=== PATIENT | female | born 1955 | race Caucasian/White ===

== ENCOUNTER → 2024-02-19 18:28 | Outpatient (REF) | payer MEDICARE, SELFPAY | LOC: CLAB 18:28 | PROVIDERS: ATTENDING PHYSICIAN Podiatrist Foot Surgery | DX: M85.671 Other cyst of bone, right ankle and foot (principal) | CPT/HCPCS: 88304 ==

== ENCOUNTER → 2024-03-02 16:13 | Outpatient (REF) | payer MEDICARE, OTHER, SELFPAY | LOC: RAD 16:13 | PROVIDERS: ATTENDING PHYSICIAN Nurse Practitioner Family | DX: K59.00 Constipation, unspecified (principal) | CPT/HCPCS: 74019 ==

== ENCOUNTER → 2024-03-29 09:39 | Outpatient (REF) | payer MEDICARE, OTHER, SELFPAY | LOC: HWRAD 09:39 | PROVIDERS: ATTENDING PHYSICIAN Nurse Practitioner Family | DX: R14.0 Abdominal distension (gaseous) (principal) | CPT/HCPCS: 76700 ==

== ENCOUNTER → 2024-08-08 10:02 | Outpatient (REF) | payer MEDICARE, SELFPAY | LOC: HWRAD 10:02 | PROVIDERS: ATTENDING PHYSICIAN Nurse Practitioner; FAMILY PHYSICIAN Nurse Practitioner Family | DX: Z12.11 Encounter for screening for malignant neoplasm of colon (principal) | CPT/HCPCS: 74261 ==

== ENCOUNTER 2024-09-20 06:19 | Day surgery (SDC) | payer MEDICARE, OTHER, SELFPAY | END 2024-09-20 10:24 | disposition home or self-care (01) | LOC: GI 06:19 | PROVIDERS: ATTENDING PHYSICIAN Internal Medicine Gastroenterology | DX: R12 Heartburn (principal); K22.70 Barrett's esophagus without dysplasia; K31.89 Other diseases of stomach and duodenum; K44.9 Diaphragmatic hernia without obstruction or gangrene | CPT/HCPCS: 43239; 88305; 88342 ==

== ENCOUNTER 2024-10-01 21:28 | Emergency (ER) | payer MEDICARE, OTHER, SELFPAY ==
[2024-10-01 21:30] VITALS: BP 119/60
--- NOTE | 2024-10-01 21:51 | ED.GENMED ---
History of Present Illness
General
Chief Complaint: Fall
Time Seen by Provider: 10/01/24 21:49
History of Present Illness
History of Present Illness:
68-year-old female presents the emergency department for evaluation of a head injury and right hip pain as well as right hand wound after a minor fall, tripped while walking up the stairs. She is able to ambulate however with significant pain to
the right hip. Denies any loss of conscious. Does not take any anticoagulants or antiplatelets.
Past History
Past History
ED Past Medical History: GERD; Negative Asthma, HTN, Hypercholesterolemia or NIDDM
ED Past Surgical History: None
Social History
Tobacco: Former smoker
Alcohol: Daily (Wine)
Personal:
Living: with family
Review of Systems
Review of Systems
Allergies reviewed?: Yes
All Other Systems: ROS reviewed and negative except as documented in HPI and ROS
Phy Exam
Physical Exam
Physical Exam:
GEN: Well appearing, NAD, WDWN
Eyes: PERRLA, EOMs intact, no scleral icterus
HENT: Minor ecchymosis to the right forehead, no crepitus, oral mucosa moist, no midline cervical spine tenderness, C-spine range of motion normal
Lungs: CTAB, no wheezes, rales, rhonchi, normal chest wall excursion
Cardiac: RRR, no M/R/G, no peripheral edema. Radial pulses 2+ bilat
Abdomen: S, NT, ND, NABS, no masses or hepatosplenomegaly
Neuro: AO x 3, cranial nerves II through XII grossly intact
MSK: No gross deformity or ecchymosis. Minor superficial wounds to the right hand, no deformity, right wrist range of motion normal. No hip or pelvic deformities, right hip range of motion is normal, focal tenderness to the gluteal region, no
inguinal pain
Skin: No rashes, petechiae. Normal color, no pallor or jaundice.
Psych: Calm, cooperative, proper hygiene
Course
Orders/Labs/Results
Orders:
Orders
10/01/24 22:05
CT Head W/o Iv Contrast Urgent
Comment:
Reason For Exam: fall, head injury
CR Hip - RT w/wo Pel 2-3 Vw* Urgent
Comment:
Reason For Exam: fall
Include a pelvis x-ray?: Yes
10/01/24 23:04
Acetaminophen [Tylenol] 650 mg PO NOW STA
Ibuprofen [Motrin] 400 mg PO NOW STA
Vital Signs
Initial and Last Documented VS:
Initial Vital Signs
Temp Pulse Resp BP Pulse Ox
98.7 F 69 16 119/60 98
10/01/24 21:30 10/01/24 21:30 10/01/24 21:30 10/01/24 21:30 10/01/24 21:30
Last Documented Vital Signs
Temp Pulse Resp BP Pulse Ox
98.7 F 69 16 118/57 98
10/01/24 21:30 10/01/24 21:30 10/01/24 21:30 10/01/24 22:07 10/01/24 22:30
MDM/Problems Addressed
MDM/Problems Addressed:
Likely right gluteal contusion. She is able to bear weight with discomfort. Recommend NSAIDs and Tylenol as well as ice, PCP follow-up if symptoms persist
*Critical Care Note
Total Time (30-74mins, 75-104mins- exclusive of procedures): Not Applicable
ED Attending Note
-
Portions of this chart may have been created with voice recognition software.� Occasional wrong word or��sound alike� substitutions may have occurred due to the inherent limitations of voice recognition software.
Discharge Plan
Departure
Patient Disposition: Home (Routine Discharge)
Date of Disposition: 10/01/24
Time of Disposition: 23:25
Patient with high blood pressure during this ER visit?: No
Discharge Problem:
Contusion of buttock
Instructions: Contusion (DC)
Prescriptions:
No Action
cholecalciferol (vitamin D3) 1,000 UNITS tablet
1,000 mg PO DAILY
citalopram 20 MG tablet
20 mg PO DAILY
acetaminophen 325 mg Tablet
650 mg PO DAILYPRN PRN (Reason: mild pain)
Theragen Tablet
1 tab PO DAILY
alprazolam [Xanax] 0.25 mg Tablet
0.25 mg PO HS PRN (Reason: anxiety)
ibuprofen 200 mg Tablet
200 mg PO Q6H PRN (Reason: mild pain)
gabapentin 300 mg Capsule
300 mg PO HS
omeprazole 20 mg Capsule,Delayed Release(Dr/Ec)
20 mg PO DAILY
Visbiome 112.5 billion cell Capsule
1 cap PO DAILY
Referrals:
Harleen Wasserman CRNP [Family Provider] -
Interventions
Interventions:
*Risk Screen - Suicide Last Done: 10/01/24 21:30
*Neglect/Abuse Screening Last Done: 10/01/24 21:30
ED- Fall Risk Assessment Last Done: 10/01/24 21:56
*Nursing Disposition Last Done: 10/01/24 23:33
ED-Musculoskeletal Assessment Last Done: 10/01/24 21:56
ED- Neurological Assessment Last Done: 10/01/24 21:56
ED-Skin Assessment Last Done: 10/01/24 22:08
Discharge Date and Time
Discharge Date/Time: 10/01/24 23:37
Print Language: AZERI
[2024-10-01 21:55] VITALS: BMI 24.6
[2024-10-01 22:07] VITALS: BP 118/57
[2024-10-01] MEDS: TYLENOL 650 MG PO (23:10)
[2024-10-01] MEDS: MOTRIN 400 MG PO (23:11)
== END 2024-10-01 23:37 | disposition home or self-care (01) ==
LOC: EMR 21:28
PROVIDERS: EMERGENCY PHYSICIAN Emergency Medicine; FAMILY PHYSICIAN Nurse Practitioner Family
DX: S30.0XXA Contusion of lower back and pelvis, initial encounter (principal); S09.90XA Unspecified injury of head, initial encounter; S72.011A Unspecified intracapsular fracture of right femur, initial encounter for closed fracture; S00.83XA Contusion of other part of head, initial encounter; M25.551 Pain in right hip; W19.XXXA Unspecified fall, initial encounter; Y93.01 Activity, walking, marching and hiking; K21.9 Gastro-esophageal reflux disease without esophagitis; Z87.891 Personal history of nicotine dependence
CPT/HCPCS: 99284; 70450; 73502

== ENCOUNTER 2024-10-02 15:35 | Inpatient (IN) | payer MEDICARE, OTHER, SELFPAY ==
[2024-10-02 11:47] VITALS: BP 140/84
--- NOTE | 2024-10-02 13:38 | ED.MUSCINJ ---
HPI-Injury
General
Chief Complaint: Musculo-Skeletal Complaint
Source: patient
Exam Limitations: none
Time Seen by Provider: 10/02/24 13:09
Nursing documentation reviewed up to this point in time: agreed with
History of Present Illness-Injury
Initial Injury comments:
68 yo female with right hip pain, evaluated here last p.m. initial xray read as negRACHELE'd home, this a.m. radiology informed official read: Right femoral slightly impacted subcapital fracture. Pt notified. Consulted Dr. Simons as pt has seen their
group in the past. He requests CT scan to determine plan of care.
Pt informs me she only wants an anterior hip replacement if one is needed. Dr. Simons confirms that no one in their group does that. He is willing to evaluate her but if she wants anterior done, he suggests [facility] or
[facility] but she can go where ever she wants. Pt states she would prefer [facility] if needs hip replaced
Past History
Past History
ED Past Medical History: GERD; Negative Asthma, HTN, Hypercholesterolemia or NIDDM
ED Past Surgical History: None
Social History
Tobacco: Former smoker
Alcohol: Daily (Wine)
Personal:
Living: with family
Review of Systems
Review of Systems
Allergies reviewed?: Yes
All Other Systems: ROS reviewed and negative except as documented in HPI and ROS
Constitutional: Denies fever
Respiratory: Denies trouble breathing
Cardiac: Denies chest pain
ABD/GI: Denies abdominal pain
: Reports no symptoms
Musculoskeletal: Reports other (Right hip pain)
Skin: Reports no symptoms
Neurological: Reports no symptoms
Phy Exam
Physical Exam
Physical Exam:
GENERAL: No acute distress. A&Ox3.
CONSTITUTIONAL: Afebrile.
EYES: PERRL, conjunctivae normal
ENMT: moist mucus membranes, Pharynx nl
RESPIRATORY: Regular respirations, nonlabored, lungs clear.
CARDIOVASCULAR: Regular rate and rhythm, no murmurs, no rubs.
GI: Soft, nontender, normal BS
MUSCULOSKELETAL: Pain with moving right hip. Moves with ease. Well perfused.
SKIN: Warm, dry, pink
PSYCH: Normal mood and affect. Well kept, interactive and appropriate
NEUROLOGIC: Awake, alert and oriented. No focal neurological deficits
Injury Course
Orders/Labs/Results
Orders:
Orders
10/02/24 13:37
CT Lower Ext W/o Iv Cont Rt Urgent
Comment:
Reason For Exam: evaluate fracture
10/02/24 13:50
CR Hip - RT w/wo Pel 2-3 Vw* Urgent
Comment:
Reason For Exam: Right Hip Fracture
Include a pelvis x-ray?: Yes
10/02/24 14:04
ORTHOPEDIC CONSULT Urgent
Consulting Provider: Rehan Simons
Was physician already notified: Yes
Reason for consult: Right hip fracture
10/02/24 14:50
Weight Bearing Status As Directed
Weight bearing to: Right lower extremity
Type: Non Wt. bearing
10/02/24 15:00
Type+Screen Routine
Regular
At Your Request: Full Participation
Does patient need a safe tray?: No
10/02/24 15:09
Admit/Transfer Patient As Directed
Co-Sign Provider:
Level of Care: Inpatient admission
Assign to:: Medical/Surgical
Physician / Group: Skyler Beavers
Diagnosis: Right hip fracture
Reason for Hospitalization: Right hip fracture
Expected length of stay greater than two midnights?: Yes
ELOS- Estimated Length of Stay in days: 3
I certify the patient meets the requirements for IP care: Yes
PRN Pain Medication Management As Directed
May give lesser potent ordered pain med per pt: Yes
preference::
Protocol:: Medication orders for pain may be administered in a
manner that supports deferring to patient preference
when the pt is:
- Requesting an ordered lesser potent pain medication.
Least to most potent pain medications are defined
as: acetaminophen < NSAID < tramadol < opioids
(morphine, oxycodone, hydromorphone).
- Requesting a lesser dose of the same medication IF
ORDERED.
- Requesting a less intrusive route of administration
if both routes are prescribed by the provider (PO <
IV).
10/02/24 15:10
Code Status As Directed
Resuscitation Status: Full Code
10/02/24 16:00
Acetaminophen [Tylenol] 650 mg PO Q4HWA
10/02/24 16:16
Alprazolam [Xanax] 0.25 mg PO HS PRN
HYDROmorphone [Dilaudid] 0.25 mg IV Q1HPRN PRN
Magnesium Hydroxide [Milk of Magnesia] 30 ml PO DAILYPRN PRN
Oxycodone [Roxicodone] 5 mg PO Q4HPRN PRN
Tamsulosin [Flomax] 0.4 mg PO DAILYPRN PRN
10/02/24 16:16
Activity As Directed
Activity Level: Bedrest
Bladder Scan As Directed
Follow Bladder Retention/Intermittent Cath Algorithm?: Yes
PRN if no void in __ hours: 6
Comment: if not voiding 6 hrs upon arrival to floor, bladder scan & follow algorithm
Intake/ Output As Directed
Frequency: Per unit guidelines
Pneumatic Compression Sleeves As Directed
Type: Knee high
Straight Cath As Directed
Frequency: Per Retention Algorithm
Additional Instructions: straight cath as needed per acute urinary retention algorithm for 24 hrs
Additional Instructions: for bladder scan greater than 400 mL
Vital Signs As Directed
Frequency: Per unit guidelines
DX Deep Vein Thrombosis Video Routine
10/02/24 20:00
Docusate Sodium [Colace] 100 mg PO BID
Sennosides [Senokot] 17.2 mg PO BID
10/02/24 22:00
Gabapentin [Neurontin] 300 mg PO HS
10/03/24 Breakfast
NPO
Allow oral meds: Yes
Allow clear liquids: No
10/03/24 07:00
CeFAZolin 2 GRAM [Ancef] 2 grams in 10 ml IV PRE PROCEDURE
10/03/24 08:00
Cholecalciferol (Vitamin D3) [VITAMIN D3 (cholecalciferol)] 25 mcg PO DAILY
Citalopram [Celexa] 20 mg PO DAILY
Pantoprazole [Protonix] 40 mg PO DAILY
MDM/Problems Addressed
MDM/Problems Addressed:
68 yo female with right hip pain, evaluated here last p.m. initial xray read as neg, DC'd home, this a.m. radiology informed official read: Right femoral slightly impacted subcapital fracture. Pt notified. Consulted Dr. Simons as pt has seen their
group in the past. He requests CT scan to determine plan of care.
Pt informs me she only wants an anterior hip replacement if one is needed. Dr. Simons confirms that no one in their group does that. He is willing to evaluate her but if she wants anterior done, he suggests [facility] or
[place]. Pt states she would prefer [facility]. She would also prefer to come here for CT scan then decide what to do from there based on CT results.
2:[address] done
Pt appears comfortable
Dr. Simons consulted and read CT scan.
Orthopedic ROBBY Lovell in
2:[address] Simons in.
Hospitalist notified of admission.
*Critical Care Note
Total Time (30-74mins, 75-104mins- exclusive of procedures): Not Applicable
ED Attending Note
-
Portions of this chart may have been created with voice recognition software.� Occasional wrong word or��sound alike� substitutions may have occurred due to the inherent limitations of voice recognition software.
Discharge Plan
Departure
Patient Disposition: Admit
Date of Disposition: 10/02/24
Time of Disposition: 14:27
Admit to: Med/Surg
Presentation/result/management discussed w/ accepting MD/DO: Hospitalist
Condition: Good
Discharge Problem:
Closed right hip fracture
Interventions
Interventions:
*Risk Screen - Suicide Last Done: 10/02/24 13:56
*General Assessment Last Done: 10/02/24 13:56
*Neglect/Abuse Screening Last Done: 10/02/24 13:56
ED- Fall Risk Assessment Last Done: 10/02/24 16:07
*ED COVID-19 Vaccine History Last Done: 10/02/24 13:56
*Nursing Disposition Last Done: 10/02/24 16:07
ED-Musculoskeletal Assessment Last Done: 10/02/24 13:59
Discharge Date and Time
Discharge Date/Time: 10/02/24 16:07
[2024-10-02 14:26] VITALS: BP 158/103
--- NOTE | 2024-10-02 14:49 | CON.ORTHO ---
Consultation
-
Date/Time Consultation Requested: 10/02/2024 @ 14:04
Date/Time Consultation Performed: 10/02/2024 @ 14:30
Requesting Provider: Shaila Chairez NP
Performing Provider: Nas Camarillo PA-C for Dr. Simons
Reason for Consultation: Right Hip Fracture
Consultation - Orthopedics
History
HPI: The patient is a 68-year-old female with a past medical history significant for GERD, MRSA infection LLE 2017 (cleared of active colonization with nasal swabs per patient), Depression, Left total hip replacement with Dr. Nobles 2018 for
displaced femoral neck fracture, and Left total knee replacement with Dr. Nobles 2019, who presented to [facility] Emergency Department on Thursday10/01/2024 after sustaining a mechanical fall. She reports that she was walking up a step
when she fell onto her right side. She reports immediate onset of right hip pain. Patient was transferred to ED via her , where x-rays were performed and were initially read as negative. She was diagnosed with a contusion of buttock and was
discharged home. She was contacted this morning after radiologist reviewed her x-rays, which revealed a right femoral slightly impacted subcapital fracture. She was informed to return to the Emergency Department for treatment. She reports pain with
weightbearing activities. She denies any anticoagulation use. She is currently laying in ED Bed 34 with , Marlo, at bedside. She reports that her pain is well controlled with OTC Tylenol and Ibuprofen. Orthopedic surgery has been consulted
regarding further management of her right hip fracture.
PAST MEDICAL HISTORY: GERD, MRSA infection LLE 2018 (cleared of active colonization with nasal swabs per patient), Depression.
PAST SURGICAL HISTORY: Left total hip replacement with Dr. Giuliano Aggarwal for displaced femoral neck fracture, Left total knee replacement with Dr. Nobles 2019.
SOCIAL HISTORY: Former Smoker. Reports EtOH use (wine). ( �Marlo). Lives at home. 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 Fully ambulatory without assistance at baseline.
FAMILY HISTORY: Non-contributory.
REVIEW OF SYSTEMS: 12-point review of systems obtained and negative except those mentioned in the HPI.
Allergies / Home Medications
Allergy/AdvReac Type Severity Reaction Status Date / Time
No Known Allergies Allergy Verified 10/01/24 21:30
�Medication �Instructions �Recorded
L.acidoph, paracasei,B. lactis 10 1 ea PO DAILY ##0 06/22/16
billion cell capsule
cholecalciferol (vitamin D3) 25 1,000 mg PO DAILY 06/22/16
mcg (1,000 unit) tablet
multivitamin with folic acid 400 1 tab PO DAILY ##0 06/22/16
mcg tablet (Tab-A-Bj)
turmeric root extract 500 mg 500 mg PO DAILY ##0 06/22/16
capsule
vitamin B complex 1 tab PO DAILY ##0 06/22/16
ascorbic acid (vitamin C) 500 mg 1,000 mg PO DAILY 08/29/19
tablet (Vitamin C)
calcium 200 mg (carbonate, 1 ea PO MEALS 08/29/19
citrate)-magnesium 50 mg (as
oxide) tablet (CalMag Thins)
citalopram 20 mg tablet 20 mg PO HS 08/29/19
omega 8-kfy-niz-fish oil 1,000 mg 1,000 mg PO DAILY 08/29/19
(120 mg-180 mg) capsule
omeprazole 40 mg capsule,delayed 40 mg PO DAILY 08/29/19
release
aspirin 325 mg tablet 325 mg PO DAILY 08/31/19
docusate sodium 100 mg capsule 100 mg PO BID #0 caps 08/31/19
magnesium hydroxide 400 mg/5 mL 30 ml PO DAILYPRN PRN constipation 08/31/19
oral suspension
Vital Signs / Lab Results
Temp Pulse Resp BP Pulse Ox
99.1 F 77 18 158/103 99
10/02/24 11:47 10/02/24 14:26 10/02/24 14:26 10/02/24 14:26 10/02/24 14:26
RADIOGRAPHIC FINDINGS:
CR Hip - RT w/wo Pel 2-3 Vw* was obtained at [facility] on 10/01/2024 and was made available for my review today. Findings: Subtle linear increased sclerosis is demonstrated at the base of the femoral head, with subtle offset at the
lateral cortical margin. Subtle linear lucency is seen on the oblique projection. Findings consistent with a slightly impacted subcapital fracture. No significant displacement. Femoral head remains situated within the acetabulum. No osseous
pelvic fracture identified. There is a left hip prosthesis. Lower lumbar discogenic and facet degenerative changes. Impression: Right femoral slightly impacted subcapital fracture.
CT Lower Ext W/o Iv Cont RT was performed at [facility] on 10/02/2024 and was made available for my review today. Findings: There is a subtle minimally impacted nondisplaced fracture of the neck of the proximal right femur best appreciated
on coronal reformatted image 58 and 59 series 203. Some mild hypertrophic degenerative changes are noted about the right hip and about the symphysis pubis. Left hip arthroplasty seen in anatomic position with some accompanying beam hardening
artifact. No additional recent cortical fracture is seen about the bony pelvis. Some hypertrophic degenerative changes are seen within the lower lumbar spine. There is a likely small fat only containing umbilical hernia although evaluation is
limited by marked patient motion/respiratory artifact. Respiration/motion artifact also obscures additional soft tissues of the true pelvis. The urinary bladder is grossly intact. There is no true pelvis free fluid. The abdominal aorta is normal
in caliber with calcific arthrosclerotic changes. Impression: Subtle minimally impacted nondisplaced fracture, neck, proximal right femur.
CR Hip - RT w/wo Pel 2-3 Vw* was obtained at [facility] on 10/02/2024 and was made available for my review today. Findings and impression: Minimally impacted nondisplaced fracture of the neck of the proximal right femur is unchanged. Left
hip arthroplasty is again seen.
PHYSICAL EXAM:
General: Well-developed, well-nourished, and in no apparent distress.
HEENT: NCAT, sclerae anicteric, normal conversational hearing.
Heart: No JVD.
Lungs: Normal work of breathing on room air.
MSK: Focused examination of the right lower extremity reveals no obvious deformity. (+) Logroll. (+) Tenderness to palpation of the right hip. ROM deferred secondary to known fracture. Able to plantarflex and dorsiflex right ankle. Wiggle all
toes. NVI distally.
Assessment / Plan
ASSESSMENT: 68-year-old female with a RIGHT minimally impacted nondisplaced femoral neck fracture.
PLAN: Unfortunately, the patient has sustained a right hip fracture following a mechanical fall yesterday. We discussed the treatment options. Recommend operative fixation. The risks, benefits, potential complications, and expected postoperative
course were reviewed. Surgical and blood consents were obtained and scanned into the patient's chart. Ancef on-call to OR. We will plan for OR tomorrow, 10/03/2024, under the direction of Dr. Simons for a RIGHT hip pinning as long as medically
cleared to proceed. Patient will remain NPO pMN 10/02/2024. Remain NWB to RLE. Continue with pain medications as needed per primary team. Type and screen ordered. Right hip marked as the correct surgical extremity. Case posted with the OR
front end assistant. Orthopedic surgery will continue to follow.
Patient seen and evaluated in tandem with Dr. Simons
--- NOTE | 2024-10-02 15:11 | HPS.HSE ---
Family Physician
-
Family Physician: ARACELI Arnold
Chief Complaint
-
Right hip pain
History of Present Illness
Patient is a 68-year-old female with past medical history of osteopenia, left hip replacement, GERD, depression came to ER with new onset of right hip pain. Patient was walking upstairs when patient had a slip and fall and landed on the right side,
patient was having significant pain. In ER patient had a hip x-ray which did not show any overt fracture. Patient was discharged home although later radiology contacted ER physician for reported judgment of patient having occult fracture. Patient
was reevaluated in ER with a CT hip confirming right hip impacted fracture. Patient evaluated by orthopedic surgery in the ER and plan to be admitted for elective surgery tomorrow.
Patient during my visit resting comfortably bed in ER. Denies any prefall symptoms of chest discomfort/shortness of breath/dizziness/palpitation. No other GI/ complaint
Medical History
Past Medical History
Past Medical History: Reports Other
Additional Past Medical History:
osteopenia, left hip replacement, GERD, depression
Past Surgical History: Reports Other
Social History
Tobacco: Former Smoker
Alcohol: Occasional
Drug: None
Personal:
Living: With Family
Family History
Family History: Not pertinent
Allergies / Home Medications
Allergies reflects when Allergies were last updated in [facility].
Home Medications with original date entered in [facility]
Allergy/Medication List:
Allergies
Allergy/AdvReac Type Severity Reaction Status Date / Time
No Known Allergies Allergy Verified 10/01/24 21:30
Home Medications
cholecalciferol (vitamin D3) 25 mcg (1,000 unit) tablet 1,000 mg PO DAILY 06/22/16
citalopram 20 mg tablet 20 mg PO DAILY 08/29/19
Lactobac no.2-Bifidobac no.1-S. thermo 112.5 billion cell capsule (Visbiome) 1 cap PO DAILY 10/02/24
acetaminophen 325 mg tablet 650 mg PO DAILYPRN PRN mild pain 10/02/24
alprazolam 0.25 mg tablet (Xanax) 0.25 mg PO HS PRN anxiety 10/02/24
gabapentin 300 mg capsule 300 mg PO HS 10/02/24
ibuprofen 200 mg tablet 200 mg PO Q6H PRN mild pain 10/02/24
omeprazole 20 mg capsule,delayed release 20 mg PO DAILY 10/02/24
therapeutic multivitamin 1 tab PO DAILY 10/02/24
Review of Systems
-
A 12 point ROS was completed and negative except as noted: Yes
Physical Exam
Vital Signs
Vital Signs
Temp Pulse Resp BP Pulse Ox
99.1 F 77 18 158/103 99
10/02/24 11:47 10/02/24 14:26 10/02/24 14:26 10/02/24 14:26 10/02/24 14:26
Physical Exam
General: Well Developed, Well Nourished and No Apparent Distress
HEENT: NormoCephalic, Moist mucous membranes and Atraumatic
Respiratory: Clear
Cardiac: S1/S2 and Regular Rhythm; No Murmur or Rub
GI: Soft, Non Tender, Non Distended and Normal Bowel Sounds; No Organomegaly
Rectal: Deferred by Provider
Musculoskeletal: No Clubbing, No Cyanosis and No Edema
Skin: No Rash
Neuro: Nonfocal/grossly intact
Impression/Plan
-
CT right hip
Subtle minimally impacted nondisplaced fracture, neck, proximal right femur.
1. Right femur neck impacted fracture
Mechanical fall
-Confirmed on CT hip
-Not having significant pain, started on oxy/IV Dilaudid regimen
-Orthopedic surgery evaluated and ER, likely surgery tomorrow
-Maintain patient n.p.o. past midnight
2. osteopenia
-Patient gets periodic DEXA scan. Managed by family physician
3. Depression/anxiety
-Maintained on Xanax/citalopram
left hip replacement
GERD
Full code
SCD
Patient RCRI score of 0 and surgical risk acceptable. Benefit outweighs the risk and patient appropriate for surgery.
Total time spent : 75 mins
I personally saw and examined the patient.
I have reviewed all diagnostic interpretations and treatment plans as written.
Time includes patient management by me, time spent at the patients bedside, time to review lab and imaging results, discussing patient care, documentation in the medical record, and time spent with the family or caregiver and discussing care plan
with RN/Consultants.
[2024-10-02 16:30] VITALS: BP 156/92
[2024-10-02 16:52] VITALS: BMI 23.8
[2024-10-02] MEDS: TYLENOL 650 MG PO ×2 (16:53→20:33)
--- NOTE | 2024-10-02 18:02 | PTCARENOTE ---
pt admitted to 2S Room 2107 from the ED at 1615. pt received in bed. pt and oriented to room, bed controls, call lara and plan of care with verbalized understanding. admission database and nursing assessment completed as documented.
medicated w/scheduled tylenol. assisted to order dinner. care ongoing.
[2024-10-02] MEDS: COLACE 100 MG PO (20:33)
[2024-10-02] MEDS: SENOKOT 17.2 MG PO (20:33)
[2024-10-02] MEDS: NEURONTIN 300 MG PO (20:33)
[2024-10-02 20:51] LABS: Blood Urea Nitrogen 11 mg/dl (7-17); Calcium 9.1 mg/dl (8.4-10.2); Carbon Dioxide 26 mmol/L (22-30); Chloride 103 mmol/L (98-107); Estimated Creatinine Clearance 95 ml/min; Glucose 148 mg/dl (70-99); Potassium 3.5 mmol/L (3.5-5.1); Sodium 139 mmol/L (135-145); eGFR > 60.00
[2024-10-02 21:04] LABS: % Basophils 0.5 % (0-2); % Eosinophils 1.8 % (0-6); % Immature Granulocytes 0.3 % (0-0.5); % Lymphocytes 15.5 % (20.5-51.1); % Monocytes 11.3 % (1.7-9.3); % Neutrophils 70.6 % (42.2-75.2); Absolute Eosinophils 0.1 10^3/uL (0-0.7); Absolute Lymphocytes 1.2 10^3/uL (1.2-3.4); Absolute Monocytes 0.9 10^3/uL (0.1-0.6); Absolute Neutrophils 5.5 10^3/uL (1.4-6.5); Hematocrit 39.7 % (37.0-47.0); Mean Corp Hgb Conc. 35.3 g/dL (33.0-37.0); Mean Corpuscular Hgb 34.5 pg (27.0-31.0); Mean Corpuscular Volume 97.8 fL (81.0-99.0); Mean Platelet Volume 9.7 fL (7.4-10.4); Nucleated Red Blood Cells % 0 %; Platelet Count 239 10^3/uL (130-400); Red Blood Cell Count 4.06 10^6/uL (4.20-5.40); Red Cell Dist. Width 11.9 % (11.5-14.5); White Blood Cell Count 7.8 10^3/uL (4.8-10.8)
[2024-10-02] MEDS: MELATONIN 10 MG PO (21:12)
[2024-10-02 22:56] VITALS: BP 156/88
[2024-10-02] MEDS: TYLENOL PO (23:56)
[2024-10-03] VITALS (10 sets, daily range): BP systolic 146–168; BP diastolic 75–93
[2024-10-03] MEDS: TYLENOL 650 MG PO ×4 (04:26→19:57)
--- NOTE | 2024-10-03 05:54 | PTCARENOTE ---
pt washed and first set of CHG wipes completed for the OR
[2024-10-03] MEDS: PROTONIX 40 MG PO (08:15)
[2024-10-03] MEDS: CELEXA 20 MG PO (08:15)
[2024-10-03] MEDS: COLACE PO ×2 (08:16→19:54)
[2024-10-03] MEDS: VITAMIN D3 (cholecalciferol) 25 MCG PO (08:16)
[2024-10-03] MEDS: SENOKOT PO ×2 (08:16→19:54)
--- NOTE | 2024-10-03 09:06 | W.PN.UPDATE ---
Update Note
Progress Note Update
Patient seated comfortably on the bedside. Endorses minimal pain to the right hip. Plan for cannulated screw fixation of the right hip a bit later today under the direction of Dr. Simons. Surgical and blood consents were previously obtained and
scanned into [facility]. New consents were obtained this morning and placed to the chart. She is to remain NPO. 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
--- NOTE | 2024-10-03 12:16 | CM ---
Adm dx- right hip fx
Met with pt at bedside
Pt reports she lives in a 2 story home with her ; 2 steps to enter, 13 steps to 2nd fl
Independent, retired, drives
DME - rolling walker, commode
SNF - [facility] in past
HH - has had in past, unsure of agency
Has ride home at discharge
PCP - Harleen Wasserman
Pharm - [facility]
Plan is for OR tomorrow for repair of hip fx
PT/OT evals to follow
Plan - TBD post op based on PT/OT evals
--- NOTE | 2024-10-03 16:25 | W.PN.HOSP.TC ---
Today's Communication/Plan
-
OR
Assessment / Plan
Assessment / Plan
Impression:
1.Right femur neck impacted fracture secondary to mechanical trauma and osteoporosis
CT of the right hip with supple minimally impacted nondisplaced fracture, neck, proximal right femur.
Pending orthopedic intervention.
2. osteopenia
-Patient gets periodic DEXA scan. Managed by family physician
3. Depression/anxiety
-Maintained on Xanax/citalopram
left hip replacement
GERD
Full code
SCD
Patient RCRI score of 0 and surgical risk acceptable. Benefit outweighs the risk and patient appropriate for surgery.
Anticipated Discharge: 24 - 48 hours
Subjective/Interval History
-
Date of Service: October 03, 2024
Objective Data
-
Vital Signs:
Vital Signs
Temp Pulse Resp BP Pulse Ox
98 F 69 8 168/75 96
10/03/24 15:23 10/03/24 16:01 10/03/24 16:01 10/03/24 16:00 10/03/24 16:01
I&O
10/02/24 10/03/24 10/04/24
06:59 06:59 06:59
Intake Total 640 / 640
Output Total 800 / 800
Balance -160 / -160
Physical Exam
-
General: Well Developed and No Apparent Distress
HEENT: Normocephalic, Atraumatic and Moist Mucous Membranes
Respiratory: Clear to Auscultation
Cardiac: Regular Rhythm and S1/S2; Negative Murmur, Rub or Gallop
GI: Soft, Nontender, Nondistended and Normal Bowel Sounds; Negative Organomegaly
Rectal: Deferred by Provider
Musculoskeletal: No Clubbing, No Cyanosis and No Edema
Skin: Negative Rash
Neuro: Nonfocal/Grossly Intact
[2024-10-03] MEDS: TYLENOL PO (16:40)
--- NOTE | 2024-10-03 16:42 | PTCARENOTE ---
pt received from PACU at 1630 via bed. pt awake and alert. Right hip surgical dressing clean and dry. toes warm, +capillary refill, decreased sensation. able to wiggle toes. at bedside.
[2024-10-03] MEDS: NSS 1000 IV (16:50)
[2024-10-03] MEDS: ASPIRIN 325 MG PO (18:28)
--- NOTE | 2024-10-03 19:00 | PTCARENOTE ---
pt is RLE NWB. pt is using w/ RW to get to bsc. had a large loose bm. has +pp, sensation normal. no c/o pain. pt resting in bed w/ call lara in reach.
[2024-10-03] MEDS: NEURONTIN 300 MG PO (21:40)
[2024-10-03] MEDS: ANCEF 5 IV (21:40)
[2024-10-03] MEDS: MELATONIN 10 MG PO (21:40)
[2024-10-04] MEDS: TYLENOL PO (00:56)
[2024-10-04] MEDS: NSS IV (02:06)
[2024-10-04 04:09] VITALS: BP 158/100
[2024-10-04] MEDS: TYLENOL 650 MG PO ×3 (04:20→12:02)
[2024-10-04] MEDS: ANCEF 5 IV (05:03)
[2024-10-04 06:41] LABS: Hematocrit 38.7 % (37.0-47.0); Hemoglobin 13.8 g/dL (12.0-16.0)
[2024-10-04 07:24] LABS: Blood Urea Nitrogen 9 mg/dl (7-17); Calcium 8.9 mg/dl (8.4-10.2); Carbon Dioxide 27 mmol/L (22-30); Chloride 103 mmol/L (98-107); Estimated Creatinine Clearance 82 ml/min; Glucose 105 mg/dl (70-99); Potassium 4.1 mmol/L (3.5-5.1); Sodium 141 mmol/L (135-145); eGFR > 60.00
--- NOTE | 2024-10-04 07:24 | W.PN.ORTHO ---
Today's Communication / Plan
-
68-year-old female POD #1 Right Hip Pinning performed on 10/03/2024 under the direction of Dr. Simons.
- NWB RLE.
- PT/OT.
- ASA 325 mg once daily x 4 weeks for DVT prophylaxis.
- Hemoglobin this AM 13.8.
- Dressing to remain intact for 7 to 10 days. Skin clips removed at 2 weeks.
- CM regarding D/C planning.
- Orthopedic surgery will continue to follow.
Assessment
.
Distal Motor Intact: Yes
Dressing:
Aquacel dressing clean, dry and intact.
Calf is soft and nontender to palpation. Able to plantarflex and dorsiflex right ankle.
NVI distally.
Assessment:
POD #[address]. Simons 10/03/2024.
Plan
.
Surgery / Date: 10/03/[address] Simons
DVT Prophylaxis: Aspirin
Activity:
Out of bed.
PT/OT
NWB RLE.
Discharge Information:
Appreciate CM.
Subjective
.
.:
Patient resting comfortably in bed. Denies any right hip pain. Denies any new complaints or concerns at this time.
Vital Signs and Labs
.
Vital Signs and Labs:
Lab Results
10/04/24 05:01
Temp Pulse Resp BP Pulse Ox
98.0 F 71 16 158/100 97
10/04/24 04:09 10/04/24 04:09 10/04/24 04:09 10/04/24 04:09 10/04/24 04:09
[2024-10-04 08:06] VITALS: BP 153/97
[2024-10-04] MEDS: PROTONIX 40 MG PO (09:11)
[2024-10-04] MEDS: SENOKOT PO ×2 (09:11→09:15)
[2024-10-04] MEDS: VITAMIN D3 (cholecalciferol) 25 MCG PO (09:11)
[2024-10-04] MEDS: CELEXA 20 MG PO (09:11)
[2024-10-04] MEDS: ASPIRIN 325 MG PO (09:12)
[2024-10-04] MEDS: COLACE PO ×2 (09:12→09:15)
[2024-10-04 11:00] VITALS: BP 125/79
[2024-10-04 12:17] VITALS: BP 150/87; PULSE 88
--- NOTE | 2024-10-04 12:24 | CM ---
Met with pt and at bedside
PT recs HH - pt requesting [facility] needs
Discussed IMM
Pt reports she will have ride home when medically stable
Plan - anticipate home with [facility] when medically ready
--- NOTE | 2024-10-04 12:57 | VNURNOTE ---
Home Health Liaison met with patient and spouse at bedside to discuss [facility] nurse/therapy, visits, schedule and homebound status. Patient is agreeable and understands that visits at home will be 2-3 x per week to assess and teach medical management.
[facility] brochure provided with contact information. Patient is aware that [facility] will contact them for start of care in 1-2 days after discharge from .
[facility] referral completed in [facility].
--- NOTE | 2024-10-04 13:55 | W.DS.TRANS ---
DC Summary - [employer]
-
Discharge Instructions:
Discharge Diagnosis/Procedures Right femoral neck fracture secondary to fall
and osteoporosis
Diet Regular
Instructions:
Stand-Alone Forms:
Changes to Home Medications: Yes
Discharge Medications:
DC Medications w/original date entered in [employer]
cholecalciferol (vitamin D3) 25 mcg (1,000 unit) tablet 1,000 mg PO DAILY 06/22/16
citalopram 20 mg tablet 20 mg PO DAILY 08/29/19
Lactobac no.2-Bifidobac no.1-S. thermo 112.5 billion cell capsule (Visbiome) 1 cap PO DAILY 10/02/24
acetaminophen 325 mg tablet 650 mg PO DAILYPRN PRN mild pain 10/02/24
alprazolam 0.25 mg tablet (Xanax) 0.25 mg PO HS PRN anxiety 10/02/24
gabapentin 300 mg capsule 300 mg PO HS 10/02/24
ibuprofen 200 mg tablet 200 mg PO Q6H PRN mild pain 10/02/24
melatonin 10 mg tablet,extended release 10 mg HS 10/02/24
omeprazole 20 mg capsule,delayed release 20 mg PO DAILY 10/02/24
therapeutic multivitamin 1 tab PO DAILY 10/02/24
acetaminophen 325 mg tablet 650 mg (2 x 325 mg) PO Q4HWA #30 tabs 10/04/24
aspirin 325 mg tablet 325 mg PO DAILY #30 tabs 10/04/24
Home Medication Changes
Aspirin for DVT prophylaxis
Pending Results: No
[2024-10-04 15:00] VITALS: BP 153/97
== END 2024-10-04 15:17 | disposition home health service (06) | DRG 482 ==
LOC: 2 SOUTH 15:35
PROVIDERS: Physician Assistant Surgical; Student in an Organized Health Care Education/Training Program; ADMITTING PHYSICIAN Hospitalist; ATTENDING PHYSICIAN Internal Medicine; CONSULT PHYSICIAN Specialist; EMERGENCY PHYSICIAN Student in an Organized Health Care Education/Training Program; FAMILY PHYSICIAN Nurse Practitioner Family
PROC: 0SS904Z Reposition Right Hip Joint with Internal Fixation Device, Open Approach (ICD-10-PCS; 2024-10-03)
DX: M80.051A Age-related osteoporosis with current pathological fracture, right femur, initial encounter for fracture (principal); Z96.642 Presence of left artificial hip joint; K21.9 Gastro-esophageal reflux disease without esophagitis; Z87.891 Personal history of nicotine dependence; Z96.652 Presence of left artificial knee joint; Y93.01 Activity, walking, marching and hiking; W01.0XXA Fall on same level from slipping, tripping and stumbling without subsequent striking against object, initial encounter; F32.A Depression, unspecified; Z79.82 Long term (current) use of aspirin; F41.9 Anxiety disorder, unspecified
CPT/HCPCS: 70450; 73502; 73700; 76000; 80048; 85014; 85018; 85025; 86850; 86900; 86901; 97116; 97162; 97166; 99284; 99285; C1713; C1769

== ENCOUNTER 2024-12-26 07:00 | Outpatient (RCR) | payer MEDICARE, OTHER, SELFPAY | END 2024-12-26 23:59 | disposition home or self-care (01) | LOC: RPT 07:00 | PROVIDERS: ATTENDING PHYSICIAN Specialist; FAMILY PHYSICIAN Nurse Practitioner Family | DX: Z47.89 Encounter for other orthopedic aftercare (principal); S72.001D Fracture of unspecified part of neck of right femur, subsequent encounter for closed fracture with routine healing; Z73.6 Limitation of activities due to disability; M62.81 Muscle weakness (generalized); R26.89 Other abnormalities of gait and mobility | CPT/HCPCS: 97110; 97161 ==

== ENCOUNTER → 2025-07-21 14:57 | Outpatient (REF) | payer MEDICARE, OTHER, SELFPAY | LOC: RAD 14:57 | PROVIDERS: ATTENDING PHYSICIAN Family Medicine | DX: R05.1 Acute cough (principal) | CPT/HCPCS: 71046 ==

== ENCOUNTER 2025-07-23 11:50 | Emergency (ER) | payer MEDICARE, OTHER, SELFPAY ==
[2025-07-23 11:53] VITALS: BP 156/80
[2025-07-23 13:32] VITALS: BMI 25.3
[2025-07-23] MEDS: TYLENOL 650 MG PO (13:36)
[2025-07-23 14:00] VITALS: BP 147/78
[2025-07-23] MEDS: NSS 500 IV (14:01)
--- NOTE | 2025-07-23 14:11 | ED.GENMED ---
History of Present Illness
<Orquidea Kiran PA-C - Last Filed: 07/23/25 15:02>
General
Chief Complaint: Flank Pain
Time Seen by Provider: 07/23/25 12:48
Past History
<Orquidea Kiran PA-C - Last Filed: 07/23/25 15:02>
Past History
ED Past Medical History: GERD; Negative Asthma, HTN, Hypercholesterolemia or NIDDM
ED Past Surgical History: None
Social History
Tobacco: Former smoker
Alcohol: Daily (Wine)
Personal:
Living: with family
Course
<Orquidea Kiran PA-C - Last Filed: 07/23/25 15:02>
Orders/Labs/Results
Orders:
Orders
07/23/25 13:20
CT Abd/Pel (IV only)-[facility] only Urgent
Comment:
Reason For Exam: r flank pain x 2 days
07/23/25 13:21
0.9% Sodium Chloride 500 ml [Nss] 500 ml IV BOLUS
Acetaminophen [Tylenol] 650 mg PO NOW STA
07/23/25 14:01
Complete Blood Count/With Diff Urgent
Comprehensive Metabolic Panel Urgent
07/23/25 14:37
Urinalysis Reflex To Culture Urgent
Urine Microscopic Reflex Cult Urgent
Abnormal Lab Results
07/23/25 07/23/25
14:01 14:37
RBC 4.03 L 10^6/uL
(4.20-5.40)
MCH 33.7 H pg
(27.0-31.0)
Absolute Neuts (auto) 7.9 H 10^3/uL
(1.4-6.5)
Absolute Lymphs (auto) 0.7 L 10^3/uL
(1.2-3.4)
Neutrophils % 86.9 H %
(42.2-75.2)
Lymphocytes % 8.0 L %
(20.5-51.1)
BUN 21 H mg/dl
(7-17)
Glucose 107 H mg/dl
(70-99)
Ur Occult Blood Reflex 1+ A
(Negative)
07/23/25 14:01
07/23/25 14:01
Vital Signs
Initial and Last Documented VS:
Initial Vital Signs
Temp Pulse Resp BP Pulse Ox
97.6 F 89 16 156/80 95
07/23/25 11:53 07/23/25 11:53 07/23/25 11:53 07/23/25 11:53 07/23/25 11:53
Last Documented Vital Signs
Temp Pulse Resp BP Pulse Ox
97.6 F 83 16 152/91 97
07/23/25 11:53 07/23/25 16:00 07/23/25 11:53 07/23/25 16:00 07/23/25 16:00
<Semaj Roberts PA-C - Last Filed: 07/23/25 20:44>
Orders/Labs/Results
Orders:
Orders
07/23/25 13:20
CT Abd/Pel (IV only)-[facility] only Urgent
Comment:
Reason For Exam: r flank pain x 2 days
07/23/25 13:21
0.9% Sodium Chloride 500 ml [Nss] 500 ml IV BOLUS
Acetaminophen [Tylenol] 650 mg PO NOW STA
07/23/25 14:01
Complete Blood Count/With Diff Urgent
Comprehensive Metabolic Panel Urgent
07/23/25 14:37
Urinalysis Reflex To Culture Urgent
Urine Microscopic Reflex Cult Urgent
Abnormal Lab Results
07/23/25 07/23/25
14:01 14:37
RBC 4.03 L 10^6/uL
(4.20-5.40)
MCH 33.7 H pg
(27.0-31.0)
Absolute Neuts (auto) 7.9 H 10^3/uL
(1.4-6.5)
Absolute Lymphs (auto) 0.7 L 10^3/uL
(1.2-3.4)
Neutrophils % 86.9 H %
(42.2-75.2)
Lymphocytes % 8.0 L %
(20.5-51.1)
BUN 21 H mg/dl
(7-17)
Glucose 107 H mg/dl
(70-99)
Ur Occult Blood Reflex 1+ A
(Negative)
07/23/25 14:01
07/23/25 14:01
Vital Signs
Initial and Last Documented VS:
Initial Vital Signs
Temp Pulse Resp BP Pulse Ox
97.6 F 89 16 156/80 95
07/23/25 11:53 07/23/25 11:53 07/23/25 11:53 07/23/25 11:53 07/23/25 11:53
Last Documented Vital Signs
Temp Pulse Resp BP Pulse Ox
97.6 F 83 16 152/91 97
07/23/25 11:53 07/23/25 16:00 07/23/25 11:53 07/23/25 16:00 07/23/25 16:00
<Orquidea Kiran PA-C - Last Filed: 07/23/25 15:02>
MDM/Problems Addressed
Differential Diagnosis Includes:
see MDM
MDM/Problems Addressed:
Note:
CHIEF COMPLAINT(S)
Suspected kidney stone.
HISTORY OF PRESENT ILLNESS
The patient,69 y/o female, presents with a chief complaint of back pain that began gradually a few days ago, R lumbar starting to now radiate around her R flank. The pain intensity reduces with ibuprofen but was notably worse during the night last
night. she did not injure herself or have any pain like this before. There is associated pain when trying to defecate but she is not constipated, last bm 2 days ago; however, there is no associated fever, nausea, vomiting, increased frequency of
urination, or dysuria. The patient rates the current pain level as 5 out of 10 when not aggravated by movement or palpation.
no history of kidney stones
she recently saw her PCP a week ago for some chest tightness and cnogestion, thought to be related to stress and anxiety; pt says she is traveling to [place] and then going on a cruise and is stressed
her pcp thought she could benefit from prednisone for a mild cough and pt has a few days left of that prescription
she has not had any shortness of breath
the pain is not upper back or in her chest any longer
POTENTIAL PROCEDURES DISCUSSED DURING THE VISIT
A non-contrast abdominal computed tomography scan was considered necessary to evaluate for kidney stones or other causes of the patients pain.
SOCIAL DETERMINANTS AFFECTING HEALTH
The patient reports increased stress related to planning a trip. Additionally, the patient smokes cannabis.
REVIEW OF SYSTEMS
- Musculoskeletal: Back pain with some relief from ibuprofen, radiating into the ankle.
- Gastrointestinal: Sensation of needing to defecate but unable due to pain.
- Respiratory: Minor pain upon deep breathing; occasional mucusy cough.
- Neurological: No significant complaints reported.
PHYSICAL EXAM
GENERAL: Alert , in no apparent distress, comfortable well appearing
EYE: pupils equal and reactive
NECK: Supple
ENT: o/p clr, mmm.
CARDIAC: Regular rate and rhythm .
LUNGS: Clear breath sounds bilaterally, no acute respiratory distress, no wheezes/rales/rhonchi
ABDOMEN: Soft, mild flank tenderness, no r/g, no cvat, normal bowel sounds
back: mild R sided lumbar tenderness
full ROM
neg straight leg raise
NEUROLOGICAL: Alert and oriented, no focal neuro deficits
SKIN: Warm and dry, skin intact.
MUSCULOSKELETAL: No edema, well perfused. neg jesus's sign
PSYCH: Normal and appropriate interaction.
PROBLEM LIST
Acute:
- Back pain with differential consideration for kidney stones.
PLAN
1. A computed tomography scan of the abdomen without contrast to investigate suspected kidney stones.
2. Draw blood for laboratory evaluation, assessing kidney function and other factors contributing to back pain.
3. Maintain pain management with ibuprofen and possibly administer acetaminophen if necessary.
4. Monitor and follow-up with findings from laboratory tests and computed tomography scan.
DIFFERENTIAL DIAGNOSIS
The Differential Diagnosis includes, in no particular order and is not limited to:
1. Nephrolithiasis (kidney stones)
2. Musculoskeletal pain or strain
3. Gas or gastrointestinal complaints
4. Constipation
5. Herpes zoster (shingles)
6. Pinched nerve or radiculopathy from a disc herniation
7. Muscle spasm
8. Urinary tract infection
9. Intervertebral disc disorder
10. Pyelonephritis
69-year-old female with a history of GERD, former smoker, marijuana vape, some anxiety presents for right-sided back pain which was initially nonradiating and positional but has started to radiate around her flank. She feels like it is worse with
changing position and thought it was muscular, it did somewhat resolve or feel better with Motrin but then returned last night and was more significant. Patient is worried because she is going on a cruise coming up and she wants to make sure she
has not a kidney stone. She has never had a kidney stone. There is no rash to the area, she looks well she is not febrile, she is tender to the right lateral lumbar region lower than her CVA area and slightly tender to her right flank. She did
not significantly have McBurney's point tenderness. She is not reporting anorexia, fever, nausea. Her vitals are stable and white count is normal. Her creatinine is normal. Pending urinalysis and CT, likely the pain is musculoskeletal. Case
signed out to Rohan roberts
<Orquidea Kiran PA-C - Last Filed: 07/23/25 15:02>
*Pulse Oximetry
SaO2: 95
Oxygen Mode of Delivery: Room air
<Semaj Roberts PA-C - Last Filed: 07/23/25 20:44>
*Radiology
Radiology exam reviewed: radiology read reviewed
<Semaj Roberts PA-C - Last Filed: 07/23/25 20:44>
Patient Management
Escalation/DeEscalation of care consider admission/obs:
3 PM: Received patient in signout pending CT scan results and reassessment
CT scan shows no acute findings. We discussed possibility of some mild constipation although patient does note she has been going to the bathroom okay. Labs and urine without any current signs of infection. Will send patient home with a
prescription for muscle relaxant. She is otherwise stable for discharge home.
ED Attending Note
<Orquidea Kiran PA-C - Last Filed: 07/23/25 15:02>
-
Portions of this chart may have been created with voice recognition software.� Occasional wrong word or��sound alike� substitutions may have occurred due to the inherent limitations of voice recognition software.
Discharge Plan
Departure
Patient Disposition: Home (Routine Discharge)
Date of Disposition: 07/23/25
Time of Disposition: 17:12
Patient with high blood pressure during this ER visit?: Yes
Discharge Problem:
Dorsalgia, Abdominal pain
Instructions: Back Pain
Prescriptions:
New
diazepam [Valium] 5 mg tablet
5 mg PO BID PRN (Reason: muscle spasm) Qty: 8 0RF
No Action
cholecalciferol (vitamin D3) 1,000 UNITS tablet
1,000 mg PO DAILY
citalopram 20 MG tablet
20 mg PO DAILY
acetaminophen 325 mg Tablet
650 mg PO DAILYPRN PRN (Reason: mild pain)
therapeutic multivitamin Tablet
1 tab PO DAILY
alprazolam [Xanax] 0.25 mg Tablet
0.25 mg PO HS PRN (Reason: anxiety)
ibuprofen 200 mg Tablet
200 mg PO Q6H PRN (Reason: mild pain)
gabapentin 300 mg Capsule
300 mg PO HS
omeprazole 20 mg Capsule,Delayed Release(Dr/Ec)
20 mg PO DAILY
Visbiome 112.5 billion cell Capsule
1 cap PO DAILY
melatonin 10 mg Tablet Extended Release
10 mg HS
acetaminophen 325 mg Tablet
650 mg PO Q4HWA Qty: 30 0RF
aspirin 325 mg Tablet
325 mg PO DAILY Qty: 30 0RF
Referrals:
Brittany Smith MD [Family Provider, Family Practice]
Interventions
Interventions:
*Risk Screen - Suicide Last Done: 07/23/25 11:53
*General Assessment Last Done: 07/23/25 13:50
*Neglect/Abuse Screening Last Done: 07/23/25 11:53
*ED- Fall Risk Assessment Last Done: 07/23/25 13:50
*ED COVID-19 Vaccine History Last Done: 07/23/25 13:50
*Nursing Disposition Last Done: 07/23/25 17:40
TI-Tjfmpk-Zznaavxwxp Assessment Last Done: 07/23/25 15:00
ED-Female Genitourinary Assessment Last Done: 07/23/25 15:00
Discharge Date and Time
Discharge Date/Time: 07/23/25 17:41
Print Language: SPANISH
[2025-07-23 14:23] LABS: Hematocrit 39.5 % (37.0-47.0); Hemoglobin 13.6 g/dL (12.0-16.0); Mean Corp Hgb Conc. 34.4 g/dL (33.0-37.0); Mean Corpuscular Volume 98.0 fL (81.0-99.0); Nucleated Red Blood Cells % 0 %; Platelet Count 276 10^3/uL (130-400); Red Cell Dist. Width 12.5 % (11.5-14.5)
[2025-07-23 14:47] LABS: ALT (SGPT) 18 U/L (0-35); AST (SGOT) 23 U/L (14-36); Albumin 4.4 g/dl (3.5-5.0); Alkaline Phosphatase 81 U/L (38-126); Blood Urea Nitrogen 21 mg/dl (7-17); Calcium 10.0 mg/dl (8.4-10.2); Carbon Dioxide 29 mmol/L (22-30); Chloride 102 mmol/L (98-107); Estimated Creatinine Clearance 70 ml/min; Glucose 107 mg/dl (70-99); Potassium 4.3 mmol/L (3.5-5.1); Sodium 136 mmol/L (135-145); Total Protein 6.7 g/dl (6.3-8.2); eGFR > 60.00
[2025-07-23 15:36] LABS: Urine Character Clear (Clear)
[2025-07-23 16:00] VITALS: BP 152/91
[2025-07-23 16:03] LABS: Urine Squamous Cell 16-20 /LPF (Few)
[2025-07-23 16:05] LABS: Urine Red Blood Cell 0-2 /HPF (0-2); Urine White Cell 0-2 /HPF (0-5)
== END 2025-07-23 17:41 | disposition home or self-care (01) ==
LOC: EMR 11:50
PROVIDERS: Physician Assistant; EMERGENCY PHYSICIAN Student in an Organized Health Care Education/Training Program; FAMILY PHYSICIAN Family Medicine
DX: M54.9 Dorsalgia, unspecified (principal); R10.9 Unspecified abdominal pain; K21.9 Gastro-esophageal reflux disease without esophagitis; F12.90 Cannabis use, unspecified, uncomplicated; Z87.891 Personal history of nicotine dependence
CPT/HCPCS: 99284; 96360; 74177; 80053; 81003; 81015; 85025; Q9967